=== PATIENT | male | born 1945 | race Native Hawaiian/Other Pacific Islander ===

== ENCOUNTER 2023-05-28 17:28 | Emergency (ER) | payer OTHER ==
[~2023-05-28] VITALS: Ht 165.1 cm; Wt 81.3 kg
[2023-05-28 17:28] VITALS: TEMP 98.5
[2023-05-28 17:55] LABS: POTASSIUM 3.7 mmol/L (3.6-5.2)
[2023-05-28 17:56] LABS: PLATELET COUNT 188 K/uL (142-355)
[2023-05-28 19:10] VITALS: BP 167/84
[2023-05-28] MEDS ORDERED: TUSSIN ADU100 MG/5 M PO (20:11)
[2023-05-28] MEDS ORDERED: ALPR0.5T24 PO (20:13)
[2023-05-28] MEDS ORDERED: ASPIRIN/ENTERIC81 MG PO (20:14)
[2023-05-28] MEDS ORDERED: LIPITOR40 MG PO (20:16)
[2023-05-28] MEDS ORDERED: [UNRECOGNIZED DRUG - OTHER] TOP (20:19)
[2023-05-28] MEDS ORDERED: DIVALPROEX500 M1 PO (20:22)
[2023-05-28] MEDS ORDERED: FE TABS325 MG PO (20:23)
[2023-05-28] MEDS ORDERED: FINA5TAB2 PO (20:23)
[2023-05-28] MEDS ORDERED: LEVO0.08 PO (20:24)
[2023-05-28] MEDS ORDERED: OMEP20CA PO (20:26)
[2023-05-28] MEDS ORDERED: QUET100T2 PO (20:27)
[2023-05-28] MEDS ORDERED: TAMS0.4C PO (20:27)
[2023-05-28] MEDS ORDERED: TRAM50TA PO (20:28)
[2023-06-07] MEDS ORDERED: FERROUS SULF325 MG PO (09:39)
[2023-06-07] MEDS ORDERED: MEGE40TA32 PO (09:39)
[2023-06-07] MEDS ORDERED: Atorvastatin Calcium PO (09:39)
[2023-06-07] MEDS ORDERED: TAMS0.4C PO (09:39)
[2023-06-07] MEDS ORDERED: QUET100T2 PO (09:40)
[2023-06-07] MEDS ORDERED: ENTERIC COATED325 MG PO (09:40)
[2023-06-07] MEDS ORDERED: DIVALPROEX500 MG PO (09:40)
[2023-06-07] MEDS ORDERED: PANTOPRAZOLE 40MG TA PO (09:41)
[2023-06-07] MEDS ORDERED: XANAX 0.5 MG PO (09:41)
[2023-06-07] MEDS ORDERED: LEVO0.08 PO (09:41)
[2023-06-07] MEDS ORDERED: FINA5TAB2 PO (09:42)
== END 2023-05-28 19:10 | disposition other institution (70) ==
LOC: ED 17:28
PROVIDERS: Family Medicine
DX: M94.0 Chondrocostal junction syndrome [Tietze] (principal); I25.10 Atherosclerotic heart disease of native coronary artery without angina pectoris; I10 Essential (primary) hypertension; I48.91 Unspecified atrial fibrillation; J44.9 Chronic obstructive pulmonary disease, unspecified; E11.9 Type 2 diabetes mellitus without complications; F41.9 Anxiety disorder, unspecified; K21.9 Gastro-esophageal reflux disease without esophagitis; N40.0 Benign prostatic hyperplasia without lower urinary tract symptoms; F03.918 Unspecified dementia, unspecified severity, with other behavioral disturbance
CPT/HCPCS: 36415; 80053; 81002; 85027; 87635; 93005; 99283; U0003